=== PATIENT | female | born 2000 | race Caucasian/White ===

== ENCOUNTER 2020-08-09 22:16 | Observation (INO) ==
[2020-08-10] MEDS ORDERED: Naloxone 0.4 MG/ML INJ IVP PRN (00:48)
[2020-08-10] MEDS ORDERED: Ondansetron 4 MG/2 ML VIAL IVP PRN (00:48)
[2020-08-10] MEDS ORDERED: Acetaminophen 325 MG TABLET PO PRN (00:48)
[2020-08-10] MEDS ORDERED: 0.9 % Sodium Chloride 1,000 ML IVC SCH (01:00)
[2020-08-10 01:45] LABS: Basophils # 0.1 K/mcL (0.0-0.2); Basophils % 1.1 %; Eosinophils # 0.6 K/mcL (0.0-0.6); Eosinophils % 7.2 %; Hematocrit 38.9 % (35.3-44.9); Hemoglobin 12.8 g/dL (11.5-15.4); Immature Granulocytes % 0.1 % (0-4); Lymphocytes # 2.9 K/mcL (0.6-4.6); Lymphocytes % 35.4 %; Mean Corpuscular HGB Conc 32.9 g/dL (31.6-35.5); Mean Corpuscular Hemoglobin 28.6 pg (28.0-33.3); Mean Corpuscular Volume 86.8 fL (83.0-100.0); Mean Platelet Volume 10.4 fL (9.4-12.4); Monocytes # 0.6 K/mcL (0.0-1.3); Platelet Count 303 K/mcL (140-400); Red Blood Count 4.48 M/mcL (3.82-4.97); Red Cell Distribution Width 12.5 % (11.5-14.5); Segmented Neutrophils % 49.2 %; White Blood Count 8.2 K/mcL (4.3-11.1)
[2020-08-10 01:53] LABS: INR 1.2; Prothrombin Time 13.8 Seconds (9.4-12.1)
[2020-08-10 02:00] LABS: Alanine Aminotransferase 6 Units/L (7-52); Albumin 3.8 g/dL (3.5-5.7); Albumin/Globulin Ratio 1.7 (1.1-2.2); Alkaline Phosphatase 43 Units/L (34-104); Aspartate Amino Transferase 12 Units/L (13-39); BUN/Creatinine Ratio 5 (6-26); Bilirubin,Total 0.5 mg/dL (0.3-1.0); Blood Urea Nitrogen 3 mg/dL (6-20); Calcium 7.9 mg/dL (8.6-10.3); Carbon Dioxide 21 mEq/L (23-29); Chloride 109 mEq/L (98-107); Globulin 2.3 g/dL (2.4-3.5); Glucose 79 mg/dL (70-105); Magnesium 1.8 mg/dL (1.6-2.6); Osmolality,Calculated 283 (280-300); Phosphorous 2.7 mg/dL (2.7-4.5); Potassium 3.9 mEq/L (3.5-5.1); Sodium 139 mEq/L (136-145); Total Protein 6.1 g/dL (6.4-8.9); eGFR For African Americans > 60; eGFR For Non-African Americans > 60
[2020-08-10] MEDS ORDERED: Morphine Sulfate 2 MG/ML SYRINGE IVP PRN (02:20)
[2020-08-10] MEDS ORDERED: Pantoprazole 40 MG VIAL IVP SCH (06:00)
[2020-08-10] MEDS ORDERED: *HR* Propofol 200 MG/20 ML VIAL IVP ONE (09:33)
[2020-08-10] MEDS ORDERED: Lidocaine -MPF 2% 2 ML VIAL ONE ×3 (09:44→10:00)
[2020-08-10] MEDS ORDERED: Ondansetron 4 MG/2 ML VIAL ONE (10:00)
[2020-08-10] MEDS ORDERED: Dexamethasone 4 MG/ML VIAL ONE (10:01)
[2020-08-10 15:26] VITALS: BP 122/82
== END 2020-08-10 14:45 | disposition home or self-care (01) ==
LOC: 3BNU → SUATTDRO 08-10 00:25
PROVIDERS: ADMIT Internal Medicine; ATTEND Nurse Practitioner Adult Health